=== PATIENT | male | born 1985 | race Caucasian/White ===

== ENCOUNTER → 2024-04-11 | Outpatient (CLI) | payer OTHER ==
--- NOTE | 2024-04-11 17:05 | XR ---
EXAMINATION TYPE: XR lumbar spine 2 or 3V DATE OF EXAM: 04/11/2024 COMPARISON: None HISTORY: Pain lower back, strain TECHNIQUE: 3 view lumbar spine FINDINGS: There 5 lumbar-type vertebral bodies. Pedicles are intact. Disc heights are preserved. Vert ebral body heights are preserved. Alignment is preserved. IMPRESSION: 1. No acute osseous abnormality lumbar spine
== END | disposition home or self-care (01) ==
LOC: RADXRMAIN 16:33
PROVIDERS: ATTEND Emergency Medicine
DX: S39.012A Strain of muscle, fascia and tendon of lower back, initial encounter (principal)
CPT/HCPCS: 72100

== ENCOUNTER → 2024-04-12 | Outpatient (CLI) | payer OTHER ==
--- NOTE | 2024-04-12 13:55 | CT ---
EXAMINATION TYPE: CT lumbar spine wo con CT DLP: 1492.8 mGycm, Automated exposure control for dose reduction was used. DATE OF EXAM: 04/12/2024 12:43 PM COMPARISON: Lumbar spine radiograph 04/11/2024. CLINICAL INDICATION:Male, 38 years old with history of S39.012D STRAIN OF MUSCLE, FASCIA AND TENDON O F LO; PHH, injury/low back pain TECHNIQUE: Multiple axial images were obtained from the midportion of T11 through the sacroiliac barbara nts. Soft tissue and bone windows in coronal and sagittal planes were obtained and reviewed. Contrast used: none. Oral contrast used: none. FINDINGS: Alignment: There are 5 lumbar type vertebral bodies within normal alignment. Bone: No evidence of fracture is identified. Discs: T12-L1: No spinal canal or neural foraminal stenosis is identified. L1-L2: No spinal canal or neural foraminal stenosis is identified. L2-L3: No spinal canal or neural foraminal stenosis is identified. L3-L4: No spinal canal or neural foraminal stenosis is identified. L4-L5: Broad-based disc bulge with mild effacement of anterior thecal sac. No neural foraminal stenos is. L5-S1: Broad base disc bulge with mild effacement of the anterior thecal sac. Bilateral facet arthrop athy. Mild left neural foraminal stenosis. Moderate right neural foraminal stenosis with the disc bul ge abutting the exiting right L5-S1 nerve root. Other: None IMPRESSION: 1. No evidence for spinal fracture. No significant central canal stenosis. 2. L5-S1 disc bulge and bilateral facet arthropathy resulting in mild left and moderate right neural foraminal stenosis as described above.
== END | disposition home or self-care (01) ==
LOC: RADXRMAIN 12:09
PROVIDERS: ATTEND Emergency Medicine
DX: S39.012D Strain of muscle, fascia and tendon of lower back, subsequent encounter
CPT/HCPCS: 72131